=== PATIENT | male | born 1945 | race Caucasian/White ===

== ENCOUNTER 2024-04-25 21:08 | Inpatient (IN) | payer BC ==
[~2024-04-25] VITALS: Ht 162.6 cm; Wt 59.4 kg
--- NOTE | 2024-04-25 21:08 | NUR ---
PATIENT PLACED ON THE MONITOR. IV AND LABS DONE.
--- NOTE | 2024-04-25 21:08 | NUR ---
PATIENT TAKEN STRAIGHT TO ROOM 5 FOR BEDSIDE TRIAGE. PATIENT SHAKING AND NOT ACTING APPROPRIATELY TO BASELINE PER FAMILY. PER FAMILY PATIENT HAS BEEN EXPERIENCE A DECLINE IN MENTAL STATUS TIMES ONE MONTH. PATIENT IS FEBRILE AND INCONTIENT, ARRIVES IN A WET BRIEF. RECEIVED VERBAL ORDER FOR 1GM OFIRMEV, PULLED VIA OVERRIDE FROM ICU OMNICELL. ACCUCHECK AT BEDSIDE READS "HIGH".
[2024-04-25 21:20] VITALS: BP 148/84; PULSE 130; RESP 33; TEMP 103.5; O2SAT 98
[2024-04-25] MEDS: ACETAMINOPHEN 100 ML IV STA (21:41)
[2024-04-25 21:51] LABS: BASOPHILS % (AUTO) 0.3 % (0.0-2.0); HEMATOCRIT 50.6 % (36-52); HEMOGLOBIN 14.2 g/dL (12.0-18.0); LYMPHOCYTES # (AUTO) 0.8 K/uL (2.0-11.5); LYMPHOCYTES % (AUTO) 10.1 % (20.5-51.1); MEAN CORPUSCULAR HEMOGLOBIN 31 pg (27-31); MEAN CORPUSCULAR HGB CONC 28 g/dL (33-37); MEAN CORPUSCULAR VOLUME 110.6 fL (80-94); MONOCYTES # (AUTO) 0.6 K/uL (0.8-1.0); MONOCYTES % (AUTO) 8.3 % (1.7-9.3); NEUTROPHILS # (AUTO) 6.1 K/uL (1.8-7.7); NEUTROPHILS % (AUTO) 81.3 % (42.2-75.2); PLATELET COUNT (AUTO) 288 K/uL (140-450); RED BLOOD CELL COUNT(AUTO) 4.58 MIL/uL (4.20-6.10); RED CELL DISTRIBUTION WIDTH 16.9 % (11.6-13.7); WHITE BLOOD COUNT (AUTO) 7.6 K/uL (4.8-10.8)
--- NOTE | 2024-04-25 21:51 | NUR ---
PT TO CT
[2024-04-25 21:58] LABS: APPEARANCE,URINE CLEAR (CLEAR); BILIRUBIN,URINE NEGATIVE (NEGATIVE); BLOOD, URINE 3+ (NEGATIVE); COLOR,URINE YELLOW (YELLOW); LEUKOCYTE ESTERASE ,URINE NEGATIVE (NEGATIVE); NITRITE, URINE NEGATIVE (NEGATIVE); PROTEIN,URINE NEGATIVE (NEGATIVE); UGLUCOSE 3+ (NEGATIVE); UROBILINOGEN,URINE 0.2 EU/dL (0.2 - 1)
[2024-04-25 22:08] LABS: FLU A ANTIGEN negative (NEGATIVE); FLU B ANTIGEN negative (NEGATIVE)
[2024-04-25 22:09] LABS: AMPHETAMINE, URINE NEGATIVE ng/ml (NEG <=1000); BARBITURATE, URINE NEGATIVE ng/ml (NEG <=200); BENZODIAZEPINE, URINE NEGATIVE ng/mL (NEG <=200)
[2024-04-25 22:10] LABS: CANNABINOID, URINE NEGATIVE ng/mL (NEG <=50); COCAINE, URINE NEGATIVE ng/mL (NEG <=300); OPIATE, URINE NEGATIVE ng/mL (NEG <=2000); PARTIAL THROMBOPLASTIN TIME 22.8 secs (22-35.6); PHENCYCLIDINE SCREEN,URINE NEGATIVE ng/mL (NEG <=25); PROTHROMBIN TIME 10.5 secs (10.8-13.4)
[2024-04-25 22:17] LABS: LACTIC ACID 11.8 mmol/L (0.4-2.0)
[2024-04-25 22:18] LABS: ANION GAP 25.3 (8-16); CALCIUM 10.3 mg/dL (8.5-10.1); CARBON DIOXIDE 21.1 mmol/L (21-32); CHLORIDE 87 mmol/L (98-107); CREATININE 3.4 mg/dL (0.6-1.3); POTASSIUM 5.4 mmol/L (3.5-5.1); SODIUM SERUM 128 mmol/L (136-145); UREA NITROGEN, BLOOD 46 mg/dL (7-18)
[2024-04-25 22:29] LABS: SALICYLATE 3.7 mg/dL (2.8-20.0)
[2024-04-25 22:31] LABS: ACETAMINOPHEN < 0.5 ug/ml (10-30); ALCOHOL, BLOOD < 3 mg/dL (<10); GLUCOSE 1640 mg/dL (74-106)
[2024-04-25] MEDS: NACL 0.9% 1,000 ML IV ONE ×2 (22:33→22:41)
[2024-04-25 22:41] LABS: BLOOD GAS HCO3 18.3 mmol/L (21.0-28.0); BLOOD GAS PCO2 34.9 mmHg (35.0-48.0); BLOOD GAS PH 7.338 (7.350-7.450); BLOOD GAS PO2 75.1 mmHg (83.0-108.0)
[2024-04-25 22:42] LABS: BLOOD GAS BASE EXCESS -6.6 mmol/L (-2.0-3.0); BLOOD GAS O2 SAT% 93.7 % (94.0-98.0)
[2024-04-25 22:48] LABS: ALANINE AMINOTRANSFERASE 19 U/L (12-78); ALKALINE PHOSPHATASE 107 U/L (50-136); ASPARTATE AMINOTRANSFERASE 13 U/L (15-37); BILIRUBIN,DIRECT 0.1 mg/dL (0.0-0.3); TOTAL BILIRUBIN 0.3 mg/dL (0.0-1.0); TOTAL PROTEIN, SERUM 6.7 g/dL (6.4-8.2)
[2024-04-25 22:51] LABS: CREATINE KINASE, TOTAL 193 U/L (39-308)
[2024-04-25 23:07] LABS: BACTERIA,URINE 10-30 (MOD) /HPF (None Seen); MUCUS,URINE 1+ /LPF (None Seen); SQUAMOUS EPITHELIAL CELL,UR 0-3 (FEW) /LPF (0-3 (FEW)); WBC,URINE 0-5 /HPF (0-5)
[2024-04-25 23:20] VITALS: O2SAT 96
--- NOTE | 2024-04-25 23:25 | NUR ---
79YR OLD MALE BIB FAMILY C/O VOMITING SHAKY FEVER XTODAY. PT GLUC "HIGH" HX OF DM. PT IS MAURITIAN SPEAKING ONLY PER FAMILY PT STARTED ACTING "NOT RIGHT " TODAY. RECTAL TEMP 103.5 ON BEDSIDE S3B MULTI SENSOR OPERATOR. DENIES CP OR SOB. PT HAS BEEN HAVING DECREASED EATING HABITS. NKDA DM
[2024-04-26] VITALS (20 sets, daily range): BP systolic 108–159; BP diastolic 6–92; PULSE 61–102; RESP 12–22; TEMP 97–99; O2SAT 94–100
[2024-04-26] MEDS ORDERED: INSULIN REGULAR, HUMAN 100 UNIT in NACL 0.9% 100 ML IV SCH ×2 (00:10→01:40)
[2024-04-26] MEDS ORDERED: DEXTROSE 50% 50 ML SYR IVP PRN ×4 (00:10→02:15)
[2024-04-26] MEDS: BLOOD GLUCOSE MONITORING 1 DEV DEV FS SCH ×4 (00:33→08:18)
[2024-04-26] MEDS: NACL 0.9% 1,000 ML IV ONE (00:35)
[2024-04-26] MEDS: DEXT 5% / NACL 0.45% 1,000 ML IV SCH ×2 (00:35→07:15)
[2024-04-26] MEDS: INSULIN REGULAR, HUMAN 100 UNIT/ML VIAL IV ONE (00:43)
--- NOTE | 2024-04-26 01:01 | NUR ---
PT AWAKE IN BED ON BEDSIDE SALES MARKETING. RESP EVEN AND UNLABORED. PENDING ADMISSION TO ICU. ACCU CHECKS STILL READING "HI" PT IS A/OX2. AT BEDSIDE
[2024-04-26] MEDS: INSULIN REGULAR, HUMAN 100 UNIT in NACL 0.9% 100 ML IV SCH ×2 (01:09→02:26)
--- NOTE | 2024-04-26 01:10 | NUR ---
INSULIN DRIP STARTED WITH 2 NURSE VERIFICATION. ACCUCHECK CURRENTLY READING "HIGH".
[2024-04-26] MEDS: NACL 0.9% 1,000 ML IV SCH ×2 (01:22→07:38)
--- NOTE | 2024-04-26 01:30 | NUR ---
PATIENT RESTING IN BED WITH FAMILY MEMBER AT BEDSIDE. MONITORING IN PLACE.
[2024-04-26] MEDS ORDERED: METF-346 PO (01:39)
[2024-04-26] MEDS ORDERED: ASPIRIN 325 MG TAB PO SCH (01:40)
[2024-04-26] MEDS ORDERED: ONDANSETRON 4 MG/2 ML VIAL IVP PRN (01:40)
[2024-04-26] MEDS ORDERED: BLOOD GLUCOSE MONITORING 1 DEV DEV FS SCH (02:15)
--- NOTE | 2024-04-26 02:28 | NUR ---
INSULIN DRIP RUNNING, THERE WERE NO PAUSES. ORDERS ENTERED IN DUPLICATED WHEN ADMISSION ORDERS WERE PLACED. STARTED CHARTING ON NEW ORDER IN EMAR AND IV SPREADSHEET. ACCUCHECK CURRENTLY READING HIGH.
--- NOTE | 2024-04-26 02:48 | NUR ---
PATIENT IS CURRENTLY INCONTINENT. PATIENT SHEETS, GOWN AND BRIEF CHANGED.
--- NOTE | 2024-04-26 03:09 | NUR ---
REPORT GIVEN TO KARLIE JUDGE
--- NOTE | 2024-04-26 03:16 | NUR ---
PATIENT TAKEN TO ICU BY NURSE VALERI
--- NOTE | 2024-04-26 03:45 | NUR ---
PATIENT RECEIVED FROM ER VIA GURNEY ACCOMPANIED BY ER NURSE, VALERI. PT AWAKE, ALERT, ORIENTED X1-2, MAORI SPEAKER, ABLE TO ANSWER SIMPLE QUESTION. AFEBRILE. ON 2L NASAL CANNULA, NOT IN DISTRESS. PERIPHERAL IV ON RIGHT AC G20, PATENT, INTACT, FLUSHED WITH SALINE AND LEFT WRIST G20, PATENT, INTACT FLUSHED WITH SALINE WITH RUNNING INSULIN DRIP (SEE IV SPREADSHEET) AND NS AT 200 MLS. ABDOMEN WAS NOTED TO HAVE A FIRM ROUND DISTENSION IN THE UMBILICAL AREA. SKIN INTACT. SAFETY PRECAUTIONS IN PLACE. PLAN OF CARE ONGOING.
[2024-04-26 04:08] LABS: BASOPHILS % (AUTO) 0.2 % (0.0-2.0); HEMATOCRIT 40.3 % (36-52); HEMOGLOBIN 13.3 g/dL (12.0-18.0); LYMPHOCYTES # (AUTO) 0.7 K/uL (2.0-11.5); LYMPHOCYTES % (AUTO) 8.5 % (20.5-51.1); MEAN CORPUSCULAR HEMOGLOBIN 31 pg (27-31); MEAN CORPUSCULAR HGB CONC 33 g/dL (33-37); MEAN CORPUSCULAR VOLUME 95.1 fL (80-94); MONOCYTES # (AUTO) 0.9 K/uL (0.8-1.0); MONOCYTES % (AUTO) 10.2 % (1.7-9.3); NEUTROPHILS # (AUTO) 6.8 K/uL (1.8-7.7); NEUTROPHILS % (AUTO) 81.1 % (42.2-75.2); PLATELET COUNT (AUTO) 224 K/uL (140-450); RED BLOOD CELL COUNT(AUTO) 4.24 MIL/uL (4.20-6.10); RED CELL DISTRIBUTION WIDTH 15.1 % (11.6-13.7); WHITE BLOOD COUNT (AUTO) 8.4 K/uL (4.8-10.8)
[2024-04-26 04:21] LABS: MAGNESIUM 2.7 mg/dL (1.8-2.4); PHOSPHORUS 3.9 mg/dL (2.5-4.9)
[2024-04-26 04:23] LABS: ANION GAP 17.6 (8-16); CALCIUM 9.4 mg/dL (8.5-10.1); CARBON DIOXIDE 22.3 mmol/L (21-32); CHLORIDE 110 mmol/L (98-107); CREATININE 2.6 mg/dL (0.6-1.3); POTASSIUM 3.9 mmol/L (3.5-5.1); SODIUM SERUM 146 mmol/L (136-145); UREA NITROGEN, BLOOD 45 mg/dL (7-18)
[2024-04-26 04:25] LABS: GLUCOSE 886 mg/dL (74-106)
--- NOTE | 2024-04-26 04:37 | NUR ---
CRITICAL LAB VALUE CAME FOR ELEVATED TROPONIN. PHONE CALL MADE TO ON-CALL BHUMIKA ZEPEDA. PER BHUMIKA ZEPEDA, CONTINUE INSULIN DRIP PER PROTOCOL. MAY INSERT REVELES CATHETER, ORDERED RENAL ULTRASOUND IN AM FOR THE ABDOMINAL DISTENSION, CARDIO CONSULT IN AM, EKG. HE ALSO ORDERED ASPIRIN AND HEPARIN SUBQ BID. ASKED ORACLE PL SQL DEVELOPER REGARDING PT'S CODE STATUS, PER MD, HE DOES NOT KNOW, AND WOULD HAVE TO REACH OUT TO FAMILY FOR THE STATUS. WILL ENDORSE TO DAYSHIFT. Addendum: 04/26/24 at 0751 by ATUL TERAN RN ORDERS READ BACK TO PROVIDER.
[2024-04-26] MEDS: ASPIRIN 325 MG TAB PO SCH (05:54)
--- NOTE | 2024-04-26 06:10 | NUR ---
PHONE CALL RECEIVED FROM DR. JAMES, PER MD, START PT ON HEPARIN DRIP. MD MADE AWARE OF HEPARIN 5,000 'U' AND ASPIRIN GIVEN. HE SAID IT'S OK TO START HEPARIN DRIP. ALSO ASKED THE MD REGARDING CODE STATUS, PER MD, HE DOESN'T KNOW YET. BUT WILL MAKE ROUNDS IN THE MORNING. ORDERS READ BACK.
[2024-04-26] MEDS ORDERED: hePARIN / DEXT 5% PREMIX 250 ML IV SCH ×2 (06:20)
[2024-04-26] MEDS ORDERED: HEPARIN PER PHARMACY MC PRN ×2 (06:20)
[2024-04-26] MEDS: ACETAMINOPHEN 100 ML IV ONE (07:18)
--- NOTE | 2024-04-26 07:30 | NUR ---
REPORT RECEIVED FROM NU POLLARD. PT IS SEEN ON BED, AWAKE BUT CONFUSED. NEEDS REORIENTATION. A-FIB SEEN ON MONITOR, DR. DAVIS AWARE. ON 2L/MIN NASAL CANNULA. PATIENT HAS 2 IV'S: 20G ON R AC INFUSING INSULIN DRIP AT 0.1 UNITS/KG/HR AND NS AT 200 ML/HR. PATIENT HAS REVELES CATHETER. BED LOCKED AND IN LOW POSITION. CALL LIGHT WITHIN REACH.
--- NOTE | 2024-04-26 07:31 | NUR ---
PER DR. JAMES, NO NEED TO GIVE HEPARIN DRIP LOADING DOSE SINCE PATIENT ALREADY RECEIVED HEPARIN 5,000UNITS SUBQ AROUND [id number]; PHARMACIST NIRMAL INFORMED AND AWARE.
--- NOTE | 2024-04-26 07:40 | NUR ---
[facility] FOR CONTINUATION OF CARE. ALL QUESTIONS ANSWERED.
[2024-04-26] MEDS: hePARIN / DEXT 5% PREMIX 250 ML IV SCH (08:17)
[2024-04-26 08:44] LABS: CALCIUM 9.1 mg/dL (8.5-10.1); CHLORIDE 117 mmol/L (98-107); CREATININE 2.1 mg/dL (0.6-1.3); POTASSIUM 3.3 mmol/L (3.5-5.1); SODIUM SERUM 151 mmol/L (136-145); UREA NITROGEN, BLOOD 37 mg/dL (7-18)
[2024-04-26 08:47] LABS: MAGNESIUM 2.6 mg/dL (1.8-2.4); PHOSPHORUS 3.5 mg/dL (2.5-4.9)
[2024-04-26 08:50] LABS: GLUCOSE 496 mg/dL (74-106)
[2024-04-26 08:51] LABS: ANION GAP 14.8 (8-16); CARBON DIOXIDE 22.5 mmol/L (21-32)
--- NOTE | 2024-04-26 08:57 | NUR ---
PATIENT HAS BEEN SCREENED AND CATEGORIZED MODERATE NUTRITION RISK. PATIENT WILL BE SEEN WITHIN 3-5 DAYS OF ADMISSION. 04/29/24 05/01/24 [facility] REFERRAL RECEIVED ON 04/26/24. REFERRAL DOES NOT MEET HIGH RISK CRITERIA PER HOSPITAL POLICY. PATIENT WILL BE SEEN AND ASSESSED ACCORDING TO THE NUTRITION CARE POLICY. [address]
--- NOTE | 2024-04-26 10:17 | NUR ---
SENT MESSAGE TO DR. MENDOZA IF OK FOR PICC LINE, ORDERED BY DR. JAMES. HE SENT MESSAGE BACK "OK TO PLACE A PICC".
--- NOTE | 2024-04-26 10:32 | NUR ---
I CALLED THE SON FARA PUENTES AND OBTAINED CONSENT OVER THE PHONE, WITNESSED BY NU BECERRA. WILL CALL PICC LINE NURSE.
[2024-04-26] MEDS ORDERED: LISI-953 PO (10:47)
[2024-04-26] MEDS ORDERED: GABA300C PO (10:47)
[2024-04-26] MEDS ORDERED: INSU300S SC (10:47)
[2024-04-26] MEDS ORDERED: ASPI-1822 PO (10:47)
[2024-04-26] MEDS ORDERED: PANT40EC PO (10:47)
[2024-04-26] MEDS ORDERED: ATOR40TA PO (10:47)
[2024-04-26] MEDS: POTASSIUM CHLORIDE 10 MEQ TABER PO SCH (10:57)
--- NOTE | 2024-04-26 12:00 | NUR ---
AT OR AROUND THIS TIME, DR. PETERSON AT BEDSIDE. PT ASSESSED AND LABS REVIEWED. PER DR. PETERSON, MAINTAIN PATIENT ON INSULIN DRIP
[2024-04-26] MEDS ORDERED: LORazepam 2 MG/ML VIAL IM/IVP PRN (12:05)
[2024-04-26 12:43] LABS: ANION GAP 12.8 (8-16); CALCIUM 8.9 mg/dL (8.5-10.1); CARBON DIOXIDE 25.9 mmol/L (21-32); CHLORIDE 120 mmol/L (98-107); CREATININE 1.6 mg/dL (0.6-1.3); GLUCOSE 205 mg/dL (74-106); POTASSIUM 3.7 mmol/L (3.5-5.1); SODIUM SERUM 155 mmol/L (136-145); UREA NITROGEN, BLOOD 31 mg/dL (7-18)
[2024-04-26 12:51] LABS: MAGNESIUM 2.4 mg/dL (1.8-2.4)
--- NOTE | 2024-04-26 13:45 | NUR ---
PICC LINE RN AT BEDSIDE
--- NOTE | 2024-04-26 15:30 | NUR ---
PT CHANGED AND REPOSITIONED. JOANN CARE RENDERED. NO ACUTE DISTRESS NOTED
[2024-04-26 16:02] LABS: ANION GAP 16.3 (8-16); CALCIUM 8.5 mg/dL (8.5-10.1); CARBON DIOXIDE 25.2 mmol/L (21-32); CHLORIDE 119 mmol/L (98-107); CREATININE 1.3 mg/dL (0.6-1.3); GLUCOSE 155 mg/dL (74-106); POTASSIUM 3.5 mmol/L (3.5-5.1); UREA NITROGEN, BLOOD 26 mg/dL (7-18)
[2024-04-26 16:05] LABS: MAGNESIUM 2.2 mg/dL (1.8-2.4); PHOSPHORUS 3.2 mg/dL (2.5-4.9)
[2024-04-26 16:09] LABS: SODIUM SERUM 157 mmol/L (136-145)
--- NOTE | 2024-04-26 16:16 | NUR ---
DR. JAMES AWARE OF CRITCIAL LAB VALUE OF SODIUM 157. PER DR. JAMES ORDERS, KEEP PATIENT ON D5 1/2 NS REGARDLESS IF BLOOD GLUCOSE RESULTS ARE > 200.
--- NOTE | 2024-04-26 16:45 | NUR ---
AT OR AROUND THIS TIME, DR. DAVIS ROUNDING AT THIS TIME. PER DR. DAVIS ORDERS, PT IS ALLOWED TO HAVE WATER
--- NOTE | 2024-04-26 18:58 | NUR ---
UPHOLSTERED GOODS CRAFTER AT BEDSIDE
--- NOTE | 2024-04-26 19:25 | NUR ---
REPORT GIVEN TO NU POLLARD
--- NOTE | 2024-04-26 19:30 | NUR ---
RECEIVED REPORT FROM [facility] NURSEHERNAN RN FOR CONTINUATION OF CARE. PT AWAKE, ICELANDIC SPEAKING MALE, ABLE TO ANSWER SIMPLE QUESTION OF YES OR NO. AFEBRILE. ON 2L NASAL CANNULA, NOT IN DISTRESS. WITH RIGHT UPPER ARM PICC, PATENT, INTACT, FLUSHED WITH SALINE WITH GOOD BLOOD RETURN ON BOTH PORTS WITH RUNNING INSULIN DRIP AND D5% - 0.45NS - SEE IV SPREADSHEET. PERIPHERAL IV ON LEFT WRIST G20, PATENT, FLUSHED WITH SALINE WITH RUNNING HEPARIN DRIP - SEE IV SPREADSHEET AND RIGHT AC G20, PATENT, FLUSHED WITH SALINE AND CAPPED. REVELES CATHETER IN PLACE DRAINING YELLOW URINE TO GRAVITY. SKIN INTACT. SAFETY PRECAUTIONS IN PLACE, BED LOCKED AND LOWERED. PLAN OF CARE ONGOING.
--- NOTE | 2024-04-26 21:05 | NUR ---
PT'S FAMILY (DAUGHTER VAMSHI AND MOM) AT BEDSIDE. THEY MENTIONED THAT THE PT WAS NOTED TO HAVE EPISODES OF CONFUSION IN THE PAST DAYS. THEY REQUEST TO SPEAK WITH THE MD REGARDING PT'S CONDITION. PHONE NUMBER UPDATED IN SPREADSHEET. WILL ENDORSE TO DAYSHIFT REGARDING REQUEST.
[2024-04-26 21:40] LABS: ANION GAP 13.7 (8-16); CARBON DIOXIDE 22.9 mmol/L (21-32); CHLORIDE 118 mmol/L (98-107); CREATININE 1.1 mg/dL (0.6-1.3); GLUCOSE 172 mg/dL (74-106); POTASSIUM 3.6 mmol/L (3.5-5.1); SODIUM SERUM 151 mmol/L (136-145); UREA NITROGEN, BLOOD 21 mg/dL (7-18)
[2024-04-27] VITALS (20 sets, daily range): BP systolic 99–144; BP diastolic 53–85; PULSE 61–78; RESP 12–20; TEMP 96.9–97.8; O2SAT 92–100
[2024-04-27 00:33] LABS: ANION GAP 14.9 (8-16); CALCIUM 7.9 mg/dL (8.5-10.1); CARBON DIOXIDE 22.6 mmol/L (21-32); CHLORIDE 115 mmol/L (98-107); CREATININE 1.1 mg/dL (0.6-1.3); GLUCOSE 206 mg/dL (74-106); POTASSIUM 3.5 mmol/L (3.5-5.1); SODIUM SERUM 149 mmol/L (136-145); UREA NITROGEN, BLOOD 18 mg/dL (7-18)
--- NOTE | 2024-04-27 03:10 | NUR ---
PT HAD A LARGE BROWN SOFT BOWEL MOVEMENT. PT CLEANED, GOWN AND LINENS CHANGED. PT ABLE TO PERFORM BASIC ADL WITH MINIMAL ASSISTANCE. ABLE TO TOLERATE WELL. PT REPOSITIONED. SAFETY PRECAUTIONS IN PLACE.
[2024-04-27 05:13] LABS: BASOPHILS % (AUTO) 0.1 % (0.0-2.0); EOSINOPHILS % (AUTO) 0.3 % (0.0-4.0); HEMATOCRIT 34.5 % (36-52); HEMOGLOBIN 11.4 g/dL (12.0-18.0); LYMPHOCYTES # (AUTO) 1.7 K/uL (2.0-11.5); LYMPHOCYTES % (AUTO) 18.7 % (20.5-51.1); MEAN CORPUSCULAR HEMOGLOBIN 31 pg (27-31); MEAN CORPUSCULAR HGB CONC 33 g/dL (33-37); MEAN CORPUSCULAR VOLUME 94.8 fL (80-94); MONOCYTES # (AUTO) 0.4 K/uL (0.8-1.0); MONOCYTES % (AUTO) 4.7 % (1.7-9.3); NEUTROPHILS # (AUTO) 6.8 K/uL (1.8-7.7); NEUTROPHILS % (AUTO) 76.2 % (42.2-75.2); PLATELET COUNT (AUTO) 157 K/uL (140-450); RED BLOOD CELL COUNT(AUTO) 3.64 MIL/uL (4.20-6.10); RED CELL DISTRIBUTION WIDTH 15.5 % (11.6-13.7)
[2024-04-27 05:57] LABS: ALANINE AMINOTRANSFERASE 19 U/L (12-78); ALBUMIN 2.3 g/dL (3.4-5.0); ALKALINE PHOSPHATASE 75 U/L (50-136); ANION GAP 11.2 (8-16); ASPARTATE AMINOTRANSFERASE 39 U/L (15-37); CALCIUM 8.1 mg/dL (8.5-10.1); CARBON DIOXIDE 24.1 mmol/L (21-32); CHLORIDE 117 mmol/L (98-107); GLUCOSE 166 mg/dL (74-106); POTASSIUM 3.3 mmol/L (3.5-5.1); SODIUM SERUM 149 mmol/L (136-145); TOTAL BILIRUBIN 0.2 mg/dL (0.0-1.0); TOTAL PROTEIN, SERUM 5.3 g/dL (6.4-8.2); UREA NITROGEN, BLOOD 16 mg/dL (7-18)
[2024-04-27 06:25] LABS: CHOL/HDL RATIO 3.3 (1-4.5)
--- NOTE | 2024-04-27 07:24 | NUR ---
REPORT ENDORSED TO [facility] NURSE, CAROL AND MIGUEL ANGEL JUDGE FOR CONTINUATION OF CARE. ALL QUESTIONS ANSWERED.
--- NOTE | 2024-04-27 07:25 | NUR ---
RECEIVED BEDSIDE REPORT FROM COMMUTER TRAIN OPERATOR NURSE, PT RESTING, AWAKE ALERT, NO DISTRESS NOTED, PICC LINE TO R UPPER ARM, PATENT INTACT, GOOD BLOOD RETURN, INFUSING INSULIN @ 0.05 UNIT/KG/HR AND D51/2 NS @ 200ML/HR INFUSING WELL. IV TO RAC 20G PATENT INTACT, SL, IV TO L WRIST 20G PATENT INTACT, INFUSING INSULIN @ 700 UNITS/HR. INFUSING WELL. PT ON 2LPM O2 VIA NC, NO SOB NOTED. REVELES CATH IN PLACE DRAINING WELL. INITIAL ASSESSMENT DONE, ALL SAFETY PRECAUTION MET, CALL LIGHT WITHIN REACH.
--- NOTE | 2024-04-27 07:41 | NUR ---
SPOKE TO PHARMACY REGARDING PT PTT AND HEPARIN DOSING. PER PHARMACY TO REDUCE HEPARIN DRIP BY 100 UNIT/HR AND TO RECHECK PTT IN 6 HR. WILL CONTINUE WITH PROTOCOLS.
--- NOTE | 2024-04-27 07:42 | NUR ---
SEEN AND ASSESSED BY , RES. ASKED HIM TO CONTACT FAMILY, PER FAMILY REQUEST. DR HOBBS.
[2024-04-27] MEDS ORDERED: MAG SULF 2000 MG/WATER PREMIX 50 ML IV PRN ×2 (08:10→08:40)
[2024-04-27 08:12] LABS: ANION GAP 11.8 (8-16); CALCIUM 7.8 mg/dL (8.5-10.1); CARBON DIOXIDE 23.6 mmol/L (21-32); CHLORIDE 116 mmol/L (98-107); CREATININE 0.9 mg/dL (0.6-1.3); GLUCOSE 187 mg/dL (74-106); POTASSIUM 3.4 mmol/L (3.5-5.1); SODIUM SERUM 148 mmol/L (136-145); UREA NITROGEN, BLOOD 14 mg/dL (7-18)
[2024-04-27] MEDS ORDERED: DEXTROSE 50% 50 ML SYR IVP PRN (08:40)
[2024-04-27] MEDS: PANTOPRAZOLE 40 MG INJ VIAL IVP SCH (09:00)
[2024-04-27] MEDS: THIAMINE 100 MG TAB PO SCH (09:00)
[2024-04-27] MEDS ORDERED: POTASSIUM CHLORIDE 40 MEQ, LIDOCAINE 1% 25 MG in NACL 0.9% 250 ML IV PRN (09:00)
--- NOTE | 2024-04-27 09:00 | NUR ---
SPOKE WITH MD JAMES REGARDING DC'ING DKA PROTOCOL DUE TO PATIENT'S GAP CLOSING. PER MD, DC FLUID PROTOCOLS AT 1000. SODIUM CURRENTLY AT 149. PER MD, REDRAW BMP AT 1400 AND PLAN OF CARE WILL ADJUST ACCORDING TO LAB RESULTS. PRIMARY RN DEYANIRA LION.
[2024-04-27] MEDS: FOLIC ACID 1 MG TAB PO SCH (09:01)
[2024-04-27] MEDS: INSULIN LANTUS 100 UNITS/ML 10 ML VIAL SUBQ SCH (09:01)
[2024-04-27] MEDS: MULTIVITAMIN 1 TAB PO SCH (09:01)
[2024-04-27] MEDS: POTASSIUM CHLORIDE 10 MEQ TABER PO SCH (09:32)
--- NOTE | 2024-04-27 09:47 | NUR ---
DR JAMES AT BEDSIDE TALKING TO PATIENT AND FAMILY, PT RESTING, NO DISTRESS NOTED, PER DR TO DC IV FLUIDS, MONITOR PT AND CHECK CMP IN 4 HOURS. WILL CONTINUE WITH ORDERS. Addendum: 04/27/24 at 1106 by MIGUEL ANGEL CARTAGENA RN PER DR TO DC O2 AND TO MONITOR PT, WILL CONTINUE WITH ORDERS
--- NOTE | 2024-04-27 12:07 | NUR ---
BLOOD SUGAR CHECKED, INSULIN GIVEN PER PROTOCOL, PT EATING LUNCH, TOLERATED WELL, ALL SAFETY PRECAUTION IN PLACE, CALL LIGHT WITHIN REACH.
[2024-04-27] MEDS: BLOOD GLUCOSE MONITORING 1 DEV DEV FS SCH (12:15)
[2024-04-27] MEDS: INSULIN LISPRO SLIDING SCALE 100 UNITS/ML VIAL SUBQ PRN (12:16)
[2024-04-27] MEDS: NACL 0.45% 1,000 ML IV SCH (12:18)
[2024-04-27] MEDS: MAGNESIUM CHLORIDE 64 MG TABEC PO SCH (12:47)
--- NOTE | 2024-04-27 12:52 | NUR ---
DR DAVIS AT BEDSIDE, PER DR TO MONITOR PATIENT UNTIL TOMORROW, CHECK TROP AGAIN TOMORROW, AND PROBABLY TO DC HEPARIN DRIP AND SWITCH TO SUBQ ANTICOAGULANT. WILL CONTINUE WITH ORDERS.
[2024-04-27 14:48] LABS: ALANINE AMINOTRANSFERASE 21 U/L (12-78); ALBUMIN 2.3 g/dL (3.4-5.0); ALKALINE PHOSPHATASE 76 U/L (50-136); ANION GAP 12.3 (8-16); ASPARTATE AMINOTRANSFERASE 38 U/L (15-37); CALCIUM 7.7 mg/dL (8.5-10.1); CARBON DIOXIDE 22.8 mmol/L (21-32); CHLORIDE 108 mmol/L (98-107); CREATININE 0.9 mg/dL (0.6-1.3); GLUCOSE 245 mg/dL (74-106); POTASSIUM 4.1 mmol/L (3.5-5.1); SODIUM SERUM 139 mmol/L (136-145); TOTAL BILIRUBIN 0.3 mg/dL (0.0-1.0); TOTAL PROTEIN, SERUM 5.3 g/dL (6.4-8.2); UREA NITROGEN, BLOOD 12 mg/dL (7-18)
--- NOTE | 2024-04-27 14:56 | NUR ---
PTT CAME BACK 63, PER PROTOCOL TO DECREASE HEPARIN DRIP BY 100 UNIT/HR, AND ORDER PTT IN 6HR, WILL CONTINUE WITH PROTOCOLS.
--- NOTE | 2024-04-27 18:11 | NUR ---
CHECKED PT BLOOD SUGAR, INSULIN GIVEN PER PROTOCOL. PT TOLERATED WELL, PT STATED DOES NOT HAVE APPETITE, ENCOURAGE PT TO STILL EAT A LITTLE. PT NOTED ATE JELLO AND ICE CREAM. CALL LIGHT WITHIN REACH.
--- NOTE | 2024-04-27 19:13 | NUR ---
TRANSFERRED PT TO TELE ROOM 120A, PT TOLERATED WELL, RESTING, CALL LIGHT WITHIN REACH. REPORT GIVEN TO NU LOPEZ FOR CONTINUOUS OF CARE.
--- NOTE | 2024-04-27 19:14 | NUR ---
CALLED PT DAUGHTER TO NOTIFY PT TRANSFERRED TO TELE ROOM 120A. DAUGHTER STATED UNDERSTANDING.
--- NOTE | 2024-04-27 19:15 | NUR ---
REPORT GIVEN BY AM NURSE FROM ICU, PT AWAKE, A/OX4, PANAMANIAN SPEAKING, TIMOTHYE USED TUTU NOLAN ID #[id number], PT ON 500 UNITS /HR HEPARIN DRIP DOUBLE LUMEN PICC, , 0.45NS @75ML/HR TO RIGHT AC 20G FLUSHED WITH NS WITHOUT DIFFICULTY, BED IN LOWEST POSITION, RAILS UP X2, CALL LIGHT WITHIN REACH, COMMUNICATION BOARD UPDATED, WILL CONTINUE FREQUENT ROUNDS, WILL CONTINUE TO MONITOR.[email or web address]
--- NOTE | 2024-04-27 19:16 | NUR ---
Patient's Plan of Care was discussed and reviewed with EMELY: JESSICA
--- NOTE | 2024-04-27 22:00 | NUR ---
FOR BS 194 2 UNITS OF HUMALOG INSULIN GIVEN ORDERED, PT TOLERATED ACTIVITY WELL. PTT 45.2 NO CHANGE TO HEPARIN DRIP AT 500 UNITS /HR. RN FAIRLY NOTIFIED.[email or web address]
[2024-04-28] VITALS (7 sets, daily range): BP systolic 106–131; BP diastolic 53–74; PULSE 60–76; RESP 18–20; TEMP 96.9–97.3; O2SAT 93–100
--- NOTE | 2024-04-28 02:00 | NUR ---
PT SLEEPING NO S/S OF DISTRESS NOTED, FC DRAINING VIA GRAVITY WITH YELLOW URINE NOTED, CALL LIGHT WITHIN REACH WILL CONTINUE TO MONITOR.[email or web address]
[2024-04-28 03:43] LABS: BASOPHILS % (AUTO) 0.4 % (0.0-2.0); EOSINOPHILS # (AUTO) 0.1 K/uL (0-0.4); EOSINOPHILS % (AUTO) 0.7 % (0.0-4.0); HEMATOCRIT 33.9 % (36-52); HEMOGLOBIN 11.2 g/dL (12.0-18.0); LYMPHOCYTES % (AUTO) 28.4 % (20.5-51.1); MEAN CORPUSCULAR HEMOGLOBIN 31 pg (27-31); MEAN CORPUSCULAR HGB CONC 33 g/dL (33-37); MEAN CORPUSCULAR VOLUME 94.1 fL (80-94); MONOCYTES # (AUTO) 0.5 K/uL (0.8-1.0); MONOCYTES % (AUTO) 6.7 % (1.7-9.3); NEUTROPHILS # (AUTO) 4.6 K/uL (1.8-7.7); NEUTROPHILS % (AUTO) 63.8 % (42.2-75.2); PLATELET COUNT (AUTO) 127 K/uL (140-450); RED BLOOD CELL COUNT(AUTO) 3.61 MIL/uL (4.20-6.10); RED CELL DISTRIBUTION WIDTH 15.3 % (11.6-13.7); WHITE BLOOD COUNT (AUTO) 7.2 K/uL (4.8-10.8)
[2024-04-28 03:57] LABS: ALANINE AMINOTRANSFERASE 19 U/L (12-78); ALBUMIN 2.1 g/dL (3.4-5.0); ALKALINE PHOSPHATASE 77 U/L (50-136); ASPARTATE AMINOTRANSFERASE 29 U/L (15-37); CALCIUM 7.6 mg/dL (8.5-10.1); CHLORIDE 106 mmol/L (98-107); CREATININE 0.8 mg/dL (0.6-1.3); GLUCOSE 185 mg/dL (74-106); MAGNESIUM 1.5 mg/dL (1.8-2.4); PHOSPHORUS 2.1 mg/dL (2.5-4.9); SODIUM SERUM 136 mmol/L (136-145); TOTAL BILIRUBIN 0.3 mg/dL (0.0-1.0); UREA NITROGEN, BLOOD 10 mg/dL (7-18)
--- NOTE | 2024-04-28 06:51 | NUR ---
FOR BS 206 4 UNITS OF HUMALOG INSULIN GIVEN ORDERED, PT TOLERATED ACTIVITY WELL, CALL LIGHT WITHIN REACH, NO S/S OF DISTRESS NOTED.[email or web address]
--- NOTE | 2024-04-28 07:30 | NUR ---
RECEIVED REPORT FROM BLACKSMITH HELPER NURSE FOR CONTINUITY OF CARE. PT IS SLEEPING. ON ROOM AIR, NO RESPIRATORY DISTRESS OR SOB. NO COMPLAIN OF PAIN. PT IS ON HEPARIN DRIP AT 500 UNITS/HR. WITH TANA CATH, SAFETY MEASURES IN PLACE. CALL LIGHT KEEP WITHIN REACH
--- NOTE | 2024-04-28 07:43 | NUR ---
REPORT GIVEN TO AM NURSE MATTA RN FOR CONTINUITY OF CARE.[email or web address]
--- NOTE | 2024-04-28 08:30 | NUR ---
SEEN THE PT SHAISTA WHERE THE PICC LINE IN PLACE APPEARS BULGING. WHEN TOUCH ,PT DENIES OF PAIN . NO REDNESS NOTED ON THE AREA. RUNNING IVF WAS STOPPED. REPORTED TO THE DOCTOR AND MD ORDER FOR XRAY AND ULTRASOUND. ORDER OBTAINED AND CARRIED OUT.
--- NOTE | 2024-04-28 11:00 | NUR ---
PT SEEN MD AT BEDSIDE
--- NOTE | 2024-04-28 11:30 | NUR ---
PT SEEN AND CHECKED. PT IS AWAKE, WATCHING TV. NO DISTRESS NOTED
[2024-04-28] MEDS: MAG SULF 2000 MG/WATER PREMIX 50 ML IV SCH (13:23)
--- NOTE | 2024-04-28 14:35 | NUR ---
P.T. NOTES P.T. PRASHANT COMPLETED
--- NOTE | 2024-04-28 15:00 | NUR ---
PT SEEN AND CHECKED. PT IS SITTING IN CHAIR. NO DISTRESS. HEPARIN CONTINUESLY DRIPPING. PT DENIES OF PAIN. NO BRUISES OR BLEEDING NOTED.
--- NOTE | 2024-04-28 19:25 | NUR ---
ENDORSED PT TO CAPACITOR REPAIRER NURSE FOR CONTINUITY OF CARE.. PT IS RESTING IN BED. MO DISTRESS. HEPARIN CONTINUESLY DRIPPING. NO BRUISES OR BLEEDING NOTED. SAFETY MEASURES IN PLACE. CALL LIGHT KEEP WITHIN REACH
--- NOTE | 2024-04-28 19:26 | NUR ---
REPORT GIVEN BY LAUREN NURSE PAXTON RN FOR CONTINUITY OF CARE, AWAKE, ALERT, RIGHT PICC LINE SL, DOUBLE LUMEN, RIGHT AC 20 G HEPARIN DRIP @500 UNITS/HR, LEFT FOREARM 18G SL, F/C DRAINING VIA GRAVITY WITH YELLOW URINE NOTED, BED IN LOWEST POSITION, RAILS UP X2, CALL LIGHT WITHIN REACH, COMMUNICATION BOARD UPDATED, WILL CONTINUE FREQUENT ROUNDS, WILL CONTINUE TO MONITOR,[email or web address]
--- NOTE | 2024-04-28 20:00 | NUR ---
Patient's Plan of Care was discussed and reviewed with EMELY: JESSICA
[2024-04-28] MEDS: INSULIN LANTUS 100 UNITS/ML 10 ML VIAL SUBQ SCH (20:58)
--- NOTE | 2024-04-28 21:00 | NUR ---
VLADISLAV ID# [id number], SONIA, ASSIST WITH TRANSLATION, PT A/OX4, PT DENIES PAIN, DISCOMFORT, FOR BS 261 6 UNITS OF HUMALOG INSULIN GIVEN ORDERED, PT GIVEN LANTUS 15 UNITS ORDERED, PT GIVEN SNACK, PT TOLERATED ACTIVITY WELL, CALL LIGHT WITHIN REACH, WILL CONTINUE TO MONITOR.[email or web address]
[2024-04-29] VITALS: BP 124/61; PULSE 61; PULSE 63; RESP 18; TEMP 97.1; O2SAT 92
--- NOTE | 2024-04-29 02:37 | NUR ---
PT SLEEPING, NO S/S OF DISTRESS NOTED, NO S/S OF ACTIVE BLEEDING NOTED, CALL LIGHT WITHIN REACH, WILL CONTINUE TO MONITOR.[email or web address]
[2024-04-29 04:00] VITALS: BP 109/58; PULSE 65; PULSE 71; RESP 18; TEMP 97.8
[2024-04-29 05:14] LABS: BASOPHILS % (AUTO) 0.2 % (0.0-2.0); EOSINOPHILS % (AUTO) 0.4 % (0.0-4.0); HEMATOCRIT 33.2 % (36-52); HEMOGLOBIN 11.4 g/dL (12.0-18.0); LYMPHOCYTES # (AUTO) 1.9 K/uL (2.0-11.5); LYMPHOCYTES % (AUTO) 38.1 % (20.5-51.1); MEAN CORPUSCULAR HEMOGLOBIN 32 pg (27-31); MEAN CORPUSCULAR HGB CONC 34 g/dL (33-37); MEAN CORPUSCULAR VOLUME 92.8 fL (80-94); MONOCYTES # (AUTO) 0.4 K/uL (0.8-1.0); NEUTROPHILS # (AUTO) 2.7 K/uL (1.8-7.7); NEUTROPHILS % (AUTO) 54.3 % (42.2-75.2); PLATELET COUNT (AUTO) 139 K/uL (140-450); RED BLOOD CELL COUNT(AUTO) 3.58 MIL/uL (4.20-6.10); RED CELL DISTRIBUTION WIDTH 15.3 % (11.6-13.7)
[2024-04-29 05:21] LABS: ALANINE AMINOTRANSFERASE 22 U/L (12-78); ALBUMIN 2.1 g/dL (3.4-5.0); ALKALINE PHOSPHATASE 84 U/L (50-136); ASPARTATE AMINOTRANSFERASE 20 U/L (15-37); CALCIUM 8.1 mg/dL (8.5-10.1); CARBON DIOXIDE 23.6 mmol/L (21-32); CHLORIDE 107 mmol/L (98-107); CREATININE 0.7 mg/dL (0.6-1.3); GLUCOSE 147 mg/dL (74-106); MAGNESIUM 1.8 mg/dL (1.8-2.4); PHOSPHORUS 3.1 mg/dL (2.5-4.9); POTASSIUM 3.6 mmol/L (3.5-5.1); SODIUM SERUM 139 mmol/L (136-145); TOTAL BILIRUBIN 0.3 mg/dL (0.0-1.0); TOTAL PROTEIN, SERUM 5.2 g/dL (6.4-8.2); UREA NITROGEN, BLOOD 10 mg/dL (7-18)
--- NOTE | 2024-04-29 06:54 | NUR ---
FOR BS 142 NO COVERAGE ORDERED, PT TOLERATED ACTIVITY WELL, HEPARIN DRIP AT 600 UNITS/HR WAS INCREASED BY RN, NO S/S OF ACTIVE BLEEDING NOTED, CALL LIGHT WITHIN REACH. WILL CONTINUE TO MONITOR.[email or web address]
[2024-04-29 07:37] VITALS: O2SAT 92
--- NOTE | 2024-04-29 07:41 | NUR ---
REPORT GIVEN TO AM NURSE YASIR RN FOR CONTINUITY OF CARE, NO S/S OF DISTRESS NOTED.[email or web address]
--- NOTE | 2024-04-29 07:42 | NUR ---
RECEIVED REPORT FROM NIGHT NURSE, AOX4, NO DISTRESS NOTED, ON CCHO DIET, ROOM AIR, WITH ONGOING HEPARIN DRIP 600U ON RIGHT AC G20, WITH RIGHT UA PICC LINE, WITH SL ON L FA G22, SAFETY PRECAUTIONS IN PLACE, CALL LIGHT WITHIN REACH, BED ON LOWEST, CONTINUE MONITORING
[2024-04-29 08:00] VITALS: BP 126/57; PULSE 58; RESP 18; TEMP 97; O2SAT 96
[2024-04-29] MEDS ORDERED: METF-713 PO (09:31)
[2024-04-29] MEDS ORDERED: INSU100S22 SUBQ (09:32)
--- NOTE | 2024-04-29 09:38 | NUR ---
PATIENT AWAKE, DISCHARGE ORDER RECEIVED, HEPARIN DRIP DISCONTINUED ORDERED, PATIENT STABLE, NO DISTRESS NOTED, SAFETY PRECAUTIONS IN PLACE, CALL LIGHT WITHIN REACH.
[2024-04-29 10:00] VITALS: TEMP 97
[2024-04-29 10:11] VITALS: BP 126/57; PULSE 58; RESP 18; TEMP 97
--- NOTE | 2024-04-29 11:39 | NUR ---
PATIENT STABLE, DISCHARGE INSTRUCTION GIVEN WITH VLADISLAV (ID [id number]), PATIENT VERBALIZED UNDERSTANDING, PERSONAL BELONGINGS GIVEN, IV LINE REMOVED, PICC LINE REMOVED, FC DISCONTINUED, SKIN INTACT, ARM BAND REMOVED, ASSISTED PATIENT TO LOBBY VIA WHEELCHAIR ACCOMPANIED WITH FAMILY.
--- NOTE | 2024-05-01 13:22 | NUR ---
RECEIVED ORDER FOR PATIENT TO GET HOME HEALTH FAXED ALL PAPERWORK TO SANDRA Gallardo [phone] WHO WILL ARRANGE HOME HEALTH FOR PATIENT AND CONTACT HIM ONCE ARRANGED
== END 2024-04-29 11:33 | disposition home or self-care (01) | DRG 637 ==
LOC: MED 21:08 → MIC 04-26 01:36 → MTU 04-27 18:44
PROVIDERS: ADMIT Student in an Organized Health Care Education/Training Program; ATTEND Student in an Organized Health Care Education/Training Program
DX: E11.00 Type 2 diabetes mellitus with hyperosmolarity without nonketotic hyperglycemic-hyperosmolar coma (NKHHC) (principal); I21.A1 Myocardial infarction type 2; N17.0 Acute kidney failure with tubular necrosis; E44.1 Mild protein-calorie malnutrition; Z20.822 Contact with and (suspected) exposure to COVID-19; E78.2 Mixed hyperlipidemia; E11.10 Type 2 diabetes mellitus with ketoacidosis without coma; I10 Essential (primary) hypertension; E83.42 Hypomagnesemia; E88.09 Other disorders of plasma-protein metabolism, not elsewhere classified; Z79.82 Long term (current) use of aspirin; Z79.899 Other long term (current) drug therapy; Z79.4 Long term (current) use of insulin; Z91.148 Patient's other noncompliance with medication regimen for other reason; Z68.22 Body mass index [BMI] 22.0-22.9, adult
CPT/HCPCS: 36415; 36600; 70450; 71045; 76770; 80048; 80053; 80076; 80305; 81001; 82009; 82140; 82550; 82553; 82803; 82948; 83605; 83735; 83874; 83880; 83930; 83935; 84100; 84300; 84484; 85025; 85610; 85730; 87040; 87081; 87086; 93005; 93971; 96361; 96365; 97116; 97163-GP; 99291; G0480; G0482; J1644; J1815; J2470; J3475; Q0092